=== PATIENT | male | born 1980 | race Caucasian/White ===

== ENCOUNTER 2017-01-02 01:28 | Emergency (ER) | payer OTHER ==
[2017-01-02] MEDS ORDERED: NS 0.9% 1000 ML* 1,000 ML IV ONE (02:33)
[2017-01-02] MEDS ORDERED: Ondansetron INJ* 2 MG/ML VIAL IV ONE (02:33)
[2017-01-02] MEDS ORDERED: Morphine INJ* 2 MG/ML 1 ML CARPUJECT IV ONE (02:33)
[2017-01-02 03:40] LABS: Hematocrit 48 % (42-52); Hemoglobin 16.8 g/dl (14.0-18.0); Mean Corpuscular HGB Conc 35 g/dl (31-36); Mean Corpuscular Hemoglobin 31 pg (27-31); Mean Corpuscular Volume 89 fL (80-94); Mean Platelet Volume 8 um3 (7.4-10.4); Red Blood Count 5.36 10^6/ul (4.0-5.4); Red Cell Distribution Width 13 % (10.5-15)
[2017-01-02 04:30] LABS: Albumin 4.6 g/dL (3.2-5.2); BUN/Creatinine Ratio 15.6 (8-20); Calcium 9.6 mg/dL (8.6-10.3); EGFR African American 99.6 (>60); EGFR Non-African American 77.4 (>60); Globulin 2.7 g/dL (2-4); Potassium 4.1 mmol/L (3.5-5.0); Total Bilirubin 0.8 mg/dL (0.2-1.0); Total Protein 7.3 g/dL (6.4-8.9)
[2017-01-02] MEDS ORDERED: Iohexol 300* (CONTRAST) 10 ML SDV IV ONE (04:34)
[2017-01-02] MEDS ORDERED: Tamsulosin CAP* 0.4 MG PO ONE (06:13)
[2017-01-02] MEDS ORDERED: Ketorolac INJ* 30 MG/ML 1 ML VIAL IV PUSH ONE (06:17)
[2017-01-02 06:24] LABS: Urine Bacteria Absent (Absent); Urine Bilirubin Negative (Negative); Urine Glucose Negative (Negative); Urine Nitrite Negative (Negative)
[2017-01-02 06:35] VITALS: BP 139/82
--- NOTE | 2017-01-02 06:48 | ED ---
Jasmeet Hayes Thomas, scribed for Jalen Whipple on 01/02/17 at 0417 . Abdominal Pain/Male - HPI Summary HPI Summary: The pt is a 36 y/o M presenting to the ED c/o RLQ abd pain that suddenly began an hour ago. The pain is aggravated by nothing and is alleviated by nothing. 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 The pain is rated 9/10. Pt additionally c/o nausea. Pt denies vomiting, constipation, and diarrhea. The patient is accompanied by a female. - History of Current Complaint Chief Complaint: EDAbdPain Stated Complaint: LOWER RT ABD PAIN Time Seen by Provider: 01/02/17 02:23 Hx Obtained From: Patient, Family/Global Logistics Manager - female is present Onset/Duration: Sudden Onset, Lasting Hours - onset one hour ago, Still Present Timing: Constant Severity Currently: Severe Pain Intensity: 9 Pain Scale Used: 0-10 Numeric Location: Discrete At: RLQ Aggravating Factor(s): Nothing Alleviating Factor(s): Nothing Associated Signs And Symptoms: Positive: Nausea. Negative: Constipation, Vomiting, Diarrhea - Allergies/Home Medications Allergies/Adverse Reactions: Allergies Allergy/AdvReac Type Severity Reaction Status Date / Time Fluocinolone Allergy Unknown Verified 01/02/17 01:35 Reaction Details Meperidine [From Demerol HCl] Allergy Unknown Verified 01/02/17 01:35 Reaction Details PMH/Surg Hx/FS Hx/Imm Hx Previously Healthy: No Endocrine/Hematology History: Reports: Other Endocrine/Hematological Disorders - Reynaud's, Psoriatic arthritis History: Reports: Other Problems/Disorders - Hx prostatitis - Surgical History Surgery Procedure, Year, and Place: None. - Immunization History Date of Tetanus Vaccine: unk Date of Influenza Vaccine: unk Infectious Disease History: No Infectious Disease History: Reports: Traveled Outside the [place] in Last 30 Days - [place] - Family History Known Family History: Positive: Other - When asked, he responds "none" - Social History Alcohol Use: Occasionally Substance Use Type: Reports: Marijuana Substance Use Comment - Amount & Last Used: occ. marijuana Smoking Status (MU): Never Smoked Tobacco Review of Systems Positive: Abdominal Pain - RLQ, sudden onset, Nausea, Other - NEGATIVE: constipation. Negative: Vomiting All Other Systems Reviewed And Are Negative: Yes Physical Exam - Summary Physical Exam Summary: Appearance: Well appearing, no pain distress. Skin: Warm, dry, reflects adequate perfusion. Head/face: Normal. Eyes: EOMI, MITCHELL. ENT: Normal. Neck: Supple. He has RLQ tenderness. Respiratory: CTA, breath sounds present. Cardiovascular: RRR, pulses symmetrical. Abdomen: Nontender, soft. Bowel: Present. Musculoskeletal: Normal, strength/ROM intact. Neuro: Normal, sensory motor intact, A&Ox3. Triage Information Reviewed: Yes Vital Signs On Initial Exam: Initial Vitals Temp Pulse Resp BP Pulse Ox 98.7 F 66 16 155/102 100 01/02/17 01:32 01/02/17 01:32 01/02/17 01:32 01/02/17 01:32 01/02/17 01:32 Vital Signs Reviewed: Yes - Anselmo Coma Scale Coma Scale Total: 15 Diagnostics - Vital Signs Vital Signs Temp Pulse Resp BP Pulse Ox 01/02/17 03:35 18 01/02/17 01:32 98.7 F 66 16 155/102 100 - Laboratory Lab Results: Lab Results 01/02/17 01/02/17 Range/Units 03:21 03:21 WBC 10.0 (3.5-10.8) 10^3/ul RBC 5.36 (4.0-5.4) 10^6/ul Hgb 16.8 (14.0-18.0) g/dl Hct 48 (42-52) % MCV 89 (80-94) fL MCH 31 (27-31) pg MCHC 35 (31-36) g/dl RDW 13 (10.5-15) % Plt Count 185 (150-450) 10^3/ul MPV 8 (7.4-10.4) um3 Neut % (Auto) 76.3 (38-83) % Lymph % (Auto) 15.6 L (25-47) % [place] % (Auto) 6.2 (1-9) % Eos % (Auto) 1.3 (0-6) % Baso % (Auto) 0.6 (0-2) % Absolute Neuts (auto) 7.7 (1.5-7.7) 10^3/ul Absolute Lymphs (auto) 1.6 (1.0-4.8) 10^3/ul Absolute Monos (auto) 0.6 (0-0.8) 10^3/ul Absolute Eos (auto) 0.1 (0-0.6) 10^3/ul Absolute Basos (auto) 0.1 (0-0.2) 10^3/ul Absolute Nucleated RBC 0.01 10^3/ul Nucleated RBC % 0.1 INR (Anticoag Therapy) 0.91 (0.89-1.11) APTT 27.7 (26.0-36.3) seconds Result Diagrams: 01/02/17 03:21 01/02/17 03:21 Lab Statement: Any lab studies that have been ordered have been reviewed, and results considered in the medical decision making process. - CT CT Abd/Pel CT Interpretation: Positive (See Comments) - Negative for appendicitis. Normal appendix noted. However, positive for a 1.5 mm obstrucitng distal right ureteral stone at the right ureterovesicular junction. It is probably intramural and may be about to pass into the urinary bladder lumen from the right ureter. It results in mild to moderate right hydronephrosis/hydroureter. No left urinary tract obstruction. Normal liver. Spleen borderline normal/ prominent. Normal gallbladder. Normal pancreas. Normal left adrenal gland. 1.7 cm right adrenal nodule. Likely adenoma but recommend followup. ED physician has reviewed this report and agrees. CT Interpretation Completed By: Radiologist Abdominal Pain Fem Course/Dx - Course Assessment/Plan: Patient presents with sudden-onset RLQ abd pain. Bloodwork obtained. CT Abd/Pel shows renal calculi. Patient discharged with follow-up with urology. - Diagnoses Provider Diagnoses: Renal calculi Discharge - Discharge Plan Condition: Stable Disposition: HOME Prescriptions: Tamsulosin HCl [Flomax] 0.4 mg PO ONCE #15 cap oxyCODONE/Acetamin 5/325 MG* [Percocet 5/325 TAB*] 1 tab PO Q8H PRN #15 tab MDD 3 PRN Reason: Pain Patient Education Materials: Kidney Stones (ED) Referrals: Albert Yuen MD [Medical Doctor] - 3 Days Additional Instructions: Follow up with Dr. Yuen, urology, in the next couple of days. Return to the emergency room for any new or worsening symptoms. The documentation as recorded by the Jasmeet carranza Thomas accurately reflects the service I personally performed and the decisions made by Sarabjit an Emmanuel.
--- NOTE | 2017-01-02 09:04 | RAD ---
INDICATION: RIGHT lower quadrant abdominal pain and tenderness. Assess for appendicitis. COMPARISON: No relevant prior exams available on the [facility] PACS for comparison. TECHNIQUE: Multidetector CT images were obtained from the lung bases to the ischial tuberosities with 100 mL Omnipaque 300 IV and oral contrast. Multiplanar reformation. REPORT: Minimal dependent subsegmental atelectasis at the visualized lung bases. The liver, gallbladder, pancreas, and spleen are unremarkable. Negative for CT abnormality of the upper GI, small bowel, or retrocecal appendix. Mild sigmoid colon diverticulosis without findings of diverticulitis. Negative for ascites, free air, hernias. 1.4 cm RIGHT adrenal nodule is nonspecific based on density measurement. Unremarkable LEFT adrenal gland. Mild RIGHT hydroureteronephrosis is traced to a 2 mm stone at the ureteral vesicular junction. Negative for additional urolithiasis. Negative for LEFT hydronephrosis. Negative for focal renal lesions. Symmetric seminal vesicles. Negative for lymphadenopathy. Unremarkable abdominal aorta and iliac arteries. Physiologic distention of the IVC. Negative for suspicious focal osseous lesions. IMPRESSION: 1. Normal appendix documented. 2. RIGHT hydroureteronephrosis is traced to a 2 mm stone at the ureteral vesicular junction. 3. While nonspecific the incidentally noted 1.4 cm RIGHT adrenal nodule is low suspicion based on small size likely a benign adenoma. Consider reassessment with MRI or noncontrast CT in 6 months time for further characterization and to assess for growth.
== END 2017-01-02 06:58 | disposition home or self-care (01) ==
LOC: ED 01:28
DX: N20.0 Calculus of kidney (principal); R11.0 Nausea; Z88.5 Allergy status to narcotic agent; I73.00 Raynaud's syndrome without gangrene; L40.50 Arthropathic psoriasis, unspecified; N41.9 Inflammatory disease of prostate, unspecified; F12.90 Cannabis use, unspecified, uncomplicated
CPT/HCPCS: 36415; 74177; 80053; 81003; 81015; 83690; 85025; 85610; 85730; 96361; 96374; 96375; 99283; J1885; J2270; J2405; Q9967